=== PATIENT | female | born 1985 | race Caucasian/White ===

== ENCOUNTER 2017-06-16 10:08 | Emergency (ER) | payer OTHER ==
[~2017-06-16] VITALS: Ht 157.5 cm; Wt 59.9 kg
[~2017-06-16 10:08] MED LIST: BIRTH CONTROL PO; PERCOCET 5-3251 EACH PO; PERCOCET PO; ULTRAM 50MG TAB50 MG PO
[2017-06-16] MEDS ORDERED: NORCO 5-325 TA1 EACH PO (12:20)
== END 2017-06-16 12:21 | disposition home or self-care (01) ==
LOC: ER 10:08
DX: S80.211A Abrasion, right knee, initial encounter (principal); M25.552 Pain in left hip; M54.2 Cervicalgia; M54.6 Pain in thoracic spine; Z88.5 Allergy status to narcotic agent; Z91.81 History of falling; W10.8XXA Fall (on) (from) other stairs and steps, initial encounter; Y93.89 Activity, other specified; Y92.89 Other specified places as the place of occurrence of the external cause; Y99.8 Other external cause status

== ENCOUNTER 2017-09-09 08:57 | Emergency (ER) | payer OTHER ==
[~2017-09-09] VITALS: Ht 157.5 cm; Wt 57.6 kg
[~2017-09-09 08:57] MED LIST changes: +NORCO 5-325 TA1 EACH PO
[2017-09-09] MEDS ORDERED: ZOLOFT25 MG PO (09:40)
[2017-09-09] MEDS ORDERED: LISINOPRIL5 MG PO (09:40)
[2017-09-09 10:06] LABS: ABSOLUTE NEUTROPHILS 3.3 thou/uL (1.4-8.2); BASOPHILS 1.1 % (0.0-2.0); EOSINOPHILS 0.7 % (0.0-3.0); HEMATOCRIT 44.2 % (37.0-47.0); HEMOGLOBIN 14.7 gm/dL (12.0-15.0); MCH 28.8 pg (26.0-34.0); MCHC 33.4 g/dL (28.0-37.0); MCV 86.3 fL (80.0-100.0); MONOCYTES 10.1 % (1.0-8.0); PLATELET COUNT 181 thou/uL (150-400); POLYS 51.1 % (36.0-66.0); RBC 5.12 mil/uL (4.20-5.00); RDW 12.5 % (10.5-14.5); WBC 6.5 thou/uL (4.0-11.0)
[2017-09-09 10:08] LABS: MANUAL DIFF NO
[2017-09-09 10:12] LABS: ANION GAP 11 mmol/L (7-16); BUN 17 mg/dL (7-18); CALCIUM 9.5 mg/dL (8.5-10.1); CHLORIDE 104 mmol/L (98-107); CO2 22 mmol/L (21-32); GLUCOSE 95 mg/dL (74-106); POTASSIUM 3.3 mmol/L (3.5-5.1); SODIUM 137 mmol/L (136-145)
[2017-09-09 10:21] LABS: TROPONIN-I < 0.04 ng/mL (<0.06)
== END 2017-09-09 11:34 | disposition home or self-care (01) ==
LOC: ER 08:57
PROVIDERS: Physician Assistant
DX: F41.9 Anxiety disorder, unspecified (principal); R20.2 Paresthesia of skin; I10 Essential (primary) hypertension; Z88.5 Allergy status to narcotic agent; Z87.891 Personal history of nicotine dependence

== ENCOUNTER 2021-07-18 08:58 | Inpatient (IN) | payer OTHER ==
[~2021-07-18] VITALS: Ht 157.5 cm; Wt 66.7 kg
[~2021-07-18 08:58] MED LIST changes: +HYDRALAZINE 2525 MG PO; +LISINOPRIL5 MG PO; +ZOLOFT25 MG PO
[2021-07-18 09:06] VITALS: BP 179/103
--- NOTE | 2021-07-18 09:16 | NUR ---
DR. ESCOBAR BEDSIDE FOR EXAM
[2021-07-18] MEDS ORDERED: SERTRALINE HCL100 MG PO (09:32)
[2021-07-18] MEDS ORDERED: COZAAR 25 MG TA25 M1 PO (09:32)
[2021-07-18] MEDS ORDERED: LISINOPRIL20 MG PO (09:32)
[2021-07-18 09:48] LABS: ABSOLUTE NEUTROPHILS 5.1 thou/uL (1.4-8.2); BASOPHILS 0.9 % (0.0-2.0); EOSINOPHILS 1.7 % (0.0-3.0); HEMATOCRIT 39.6 % (37.0-47.0); HEMOGLOBIN 13.1 gm/dL (12.0-15.0); LYMPHOCYTES 23.3 % (24.0-44.0); MCH 28.4 pg (26.0-34.0); MONOCYTES 8.7 % (1.0-8.0); PLATELET COUNT 219 thou/uL (150-400); POLYS 65.4 % (36.0-66.0); RBC 4.61 mil/uL (4.20-5.00); WBC 7.8 thou/uL (4.0-11.0)
[2021-07-18 09:59] LABS: CALCIUM 8.5 mg/dL (8.5-10.1); POTASSIUM 4.1 mmol/L (3.5-5.1)
--- NOTE | 2021-07-18 15:16 | NUR ---
ASSUMED CARE OF PT
[2021-07-18 16:47] LABS: CHOLESTEROL 137 mg/dL (<200); HDL CHOLESTEROL 64 mg/dL (>40); LDL CHOLESTEROL 60 mg/dL (<100); TC:HDL 2.1 Ratio (Not establshd); TRIGLYCERIDE 66 mg/dL (<150); VLDL 13 mg/dL (<40)
[2021-07-18 17:03] VITALS: BP 122/74
--- NOTE | 2021-07-18 19:29 | NUR ---
PT ADMIT TO CCU APPROX 1700 FROM ED. PT HAS NO C/O CP/ NAUSEA/VOMITING/SOB. PT UP AD SUSANA WITH NO DEFICITS. PT AFEBRILE, ADEQUATE UOP, NO BM. PLAN TO DO CARDIAC STRESS TEST IN AM. PT HAS BEEN THOUROUGHLY UPDATED AND EDUCATED ON PT CONDITION AND POC. PT OROGRESSING TOWARDS POC.
[2021-07-18 20:03] VITALS: BP 136/85
[2021-07-18 23:08] VITALS: BP 136/85
[2021-07-19] VITALS (8 sets, daily range): BP systolic 102–137; BP diastolic 65–82
--- NOTE | 2021-07-19 04:45 | NUR ---
UPON SHIFT ASSESSMENT, PT AOX4. PT DENIES PAIN AND SOB WHILE ON ROOM AIR. PT TOLERATING PO INTAKE OF FLUIDS AND HEART HEALTHY DIET WITHOUT ISSUE, NPO AT MIDNIGHT IN ANTICIPATION OF CARDIAC RELATED PROCEDURE. PT WITHOUT NAUSEA OR EMESIS. PT AMBULATING INDEPENDENTLY IN ROOM AND TO BATHROOM. SENSATION INTACT, CAPILLARY REFILL LESS THAN 3SEC, PERIPHERAL PULSES PALPABLE IN ALL EXTREMITIES. PT ENCOURAGED TO NOTIFY STAFF FOR ALL NEEDS, CALL LIGHT WITHIN REACH, BED LOCKED IN LOWEST POSITION, FREQUENT MONITORING WILL CONTINUE.
--- NOTE | 2021-07-19 09:19 | CATHLAB ---
[facility] [place] [address] INVASIVE PROCEDURE REPORT Name: PATITO KRAUSE Room #: 214-P ADM IN M.R.#: [id number] Admission: 07/18/21 Attend Phys: Jason Pierson MD Discharge: Date of : 83 Report #: [id number] THIS REPORT FOR: cc: Andres Gutiérrez K. Steven DO Lundgren, Craig H. MD [facility] ~ APPROVED REPORT Study performed: 07/19/2021 07:43:40 Patient Details Patient Status: In-Patient Room #: The patient is a 36 year-old female Event Personnel James Conde Mold Parter, Molly Cobos RT(R)() Monitor, Mia Singh RTR Deuce Nielsen Dexter RN training program manager Performed Art Access - R femoral artery* Left Heart Cath w/or w/o Coronaries 1576002 [facility] Renal Bilateral Peripheral Angiography 1270244 CVRENALBIL Hemostasis w/ Mynx [id number] Initial Mod Sed Same Phys/QHP Gr5y 334731 Procedure Narrative The patient was brought urgently to the Cardiac Catheterization Laboratory and was prepped and draped in a sterile manner. The Right Groin^ was infiltrated with 1% Lidocaine subcutaneous anesthesia. A 6FR MULTIPACK W/145 PIG #[id number] sheath was inserted into the RFA 6F^. Coronary angiography was performed using coronary diagnostic catheters. The right coronary system was accessed and visualized with a JR4 catheter. The left coronary system was accessed and visualized with a JL4 catheter. The left ventricle was accessed and visualized with a PIGTAIL catheter. The patient tolerated the procedure well and there were no complications associated with the procedure. Selective renal angiography performed with the Flor right 4 cm catheter. Intraoperative Conscious Sedation Fentanyl 100 mcg Versed 1 mg Fluoro Time: 3.16 minutes Dose: DAP 2358.10 cGycm2 Contrast Type and Amount: Omnipaque 100 ml [facility] [email or web address] [address] INVASIVE PROCEDURE REPORT Name: PATITO KRAUSE Room #: 214-P [facility] IN [facility]#: [id number] Admission: 07/18/21 Attend Phys: Jason Pierson MD Discharge: Date of : 83 Report #: [id number] Coronary Angiography The patient's coronary anatomy is co- dominant. Diagnostic Cath Left Main Normal left main LAD Normal left anterior descending Diagonal 1 Large, single anterior lateral branch, angiographically normal Circumflex Large codominant circumflex L PDA Normal posterior descending Right Coronary Normal right coronary R PDA Normal posterior descending RPLV Normal posterior lateral Left Ventriculography The left ventricle is normal in size with normal contractility. The left ventricular ejection fraction is estimated to be 60-65%. Left ventricular wall motion abnormalities are not present. There is no mitral insufficiency. Normal bilateral renal angiography done in evaluation of hypertensive urgency Hemodynamics The aortic pressure is 118/50 mmHg with a mean of 59 mmHg. The left ventricular pressure is 111/3 mmHg with a mean of mmHg. The left ventricular end diastolic pressure is 7 mmHg. Conclusion 1. Normal global and regional left ventricular systolic function. EF 65% 2. Normal left main 3. Normal coronary vasculature. Codominant circulation 4. Normal single bilateral renal arteries <ELECTRONICALLY SIGNED> By: James Conde MD, FACC 07/19/21918 8 8 James Conde MD, FACC /INF
--- NOTE | 2021-07-19 12:29 | EKG ---
[address] [place] [address] ELECTROCARDIOGRAM REPORT Name: PATITO KRAUSE Room #: 214-P [facility] IN M.R.#: [id number] Admission: 07/18/21 Attend Phys: Jason Pierson MD Discharge: Date of : 83 Report #: [id number] [facility] ED Test Date: 2021-07-18 Test Time: 09:02:32 Pat Name: PATITO KRAUSE Department: Room: 214 Gender: F School Speech Language Pathologist: : 1985 Requested By: Devin Marie Order Number: [id number] MD: James Conde Measurements Intervals [place] Rate: 70 P: 39 IN: 146 QRS: 45 QRSD: 71 T: 38 QT: 387 QTc: 418 Interpretive Statements Sinus rhythm Poor R wave progression Compared to ECG 09/09/2017 09:50:29 No significant changes Electronically Signed On 07-19-2021 12:29:30 CDT by James Conde [email or web address] <ELECTRONICALLY SIGNED> By: James Conde MD, [facility] 07/19/21 1229 1 1 James Conde MD, FACC /EPI
--- NOTE | 2021-07-19 12:35 | EKG ---
[address] [address] ELECTROCARDIOGRAM REPORT Name: PATITO KRAUSE Room #: 214-P [facility] IN M.R.#: [id number] Admission: 07/18/21 Attend Phys: Jason Pierson MD Discharge: Date of : 83 Report #: [id number] [facility] ED Test Date: 2021-07-18 Test Time: 12:45:44 Pat Name: PATITO KRAUSE Department: Room: 214 Gender: F Disbursement Clerk: KAREN : 1985 Requested By: Devin Marie Order Number: [id number] MD: James Conde Measurements Intervals [place] Rate: 61 P: 22 MT: 147 QRS: 24 QRSD: 75 T: -2 QT: 398 QTc: 401 Interpretive Statements Sinus rhythm No significant abnormality Compared to ECG 07/18/2021 09:02:32 No significant changes Electronically Signed On 07-19-2021 12:34:42 CDT by James Conde [email or web address] <ELECTRONICALLY SIGNED> By: James Conde MD, [facility] 07/19/21 1234 1245 1245 James Conde MD, FACC /EPI
--- NOTE | 2021-07-19 12:45 | 2DMMODE ---
[facility] [place] [address] 2 D/M-MODE ECHOCARDIOGRAM Name: PATITO KRAUSE Room #: 214-P ADM IN M.R.#: [id number] Admission: 07/18/21 Attend Phys: Jason Pierson MD Discharge: Date of : 83 Report #: [id number] THIS REPORT FOR: cc: Andres Gutiérrez K. Steven DO Lundgren, Craig H. MD [facility] ~ APPROVED REPORT Study performed: 07/19/2021 11:07:37 EXAM: Comprehensive 2D, Doppler, and color-flow Echocardiogram Patient Location: Bedside Room #: 214 Status: routine BSA: 1.67 HR: 80 bpm BP: 137/78 mmHg Rhythm: NSR Other Information Study Quality: Good Indications Elevated Troponin Chest Pain Hypertension/HDD 2D Dimensions RVDd: 25.23 mm IVSd: 7.84 (7-11mm) LVOT Diam: 17.69 (18-24mm) LVDd: 41.27 mm PWd: 7.74 (7-11mm) Ascending Ao: 27.38 (22-36mm) LVDs: 29.16 (25-40mm) Left Atrium: 25.10 (27-40mm) IVC: 11.00 mm Volumes Left Atrial Volume (Systole) Single Plane 4CH: 28.26 mL Single Plane 2CH: 22.07 mL LA ESV Index: 17.00 mL/m2 Aortic Valve AoV Peak Efren.: 1.35 m/s AO Peak Gr.: 7.30 mmHg LVOT Max P.34 mmHg [facility] [address] [place] [address] 2 D/M-MODE ECHOCARDIOGRAM Name: KRAUSE,PATITO M Room #: 214-P [facility]#: [id number] Admission: 07/18/21 Attend Phys: Jason Pierson MD Discharge: Date of : 83 Report #: [id number] LVOT Max V: 1.04 m/s JUSTUS Vmax: 1.89 cm2 Mitral Valve E/A Ratio: 1.1 MV Decel. Time: 261.34 ms MV E Max Efren.: 0.70 m/s MV A Efren.: 0.65 m/s MV PHT: 75.79 ms IVRT: 87.66 ms Pulmonary Valve PV Peak Efren.: 0.96 m/s PV Peak Gr.: 3.71 mmHg Pulmonary Vein P Vein S: 0.57 m/s P Vein A: 0.29 m/s P Vein D: 0.35 m/s P Vein A Dur.: 96.9 msec P Vein S/D Ratio: 1.63 Left Ventricle The left ventricle is normal size. There is normal LV segmental wall motion. There is normal left ventricular wall thickness. Left ventricular systolic function is normal. The left ventricular ejection fraction is within the normal range. LVEF is 55-60%. The left ventricular diastolic function is normal. Right Ventricle The right ventricle is normal size. The right ventricular systolic function is normal. Atria The left atrium size is normal. The right atrium size is normal. Aortic Valve The aortic valve is normal in structure. No aortic regurgitation is present. There is no aortic valvular stenosis. Mitral Valve The mitral valve is normal in structure. There is no mitral valve regurgitation noted. No evidence of mitral valve stenosis. Tricuspid Valve The tricuspid valve is normal in structure. There is no tricuspid valve regurgitation noted. [facility] [address] [place] [address] 2 D/M-MODE ECHOCARDIOGRAM Name: PATITO KRAUSE Room #: 214-P ADM IN .R.#: [id number] Admission: 07/18/21 Attend Phys: Jason Pierson MD Discharge: Date of : 83 Report #: [id number] Pulmonic Valve The pulmonary valve is normal in structure. There is no pulmonic valvular regurgitation. Great Vessels The aortic root is normal in size. IVC is normal in size and collapses >50% with inspiration. Pericardium There is no pericardial effusion. <Conclusion> Left ventricular systolic function is normal. There is normal LV segmental wall motion. LVEF is 55-60%. The left ventricular diastolic function is normal. The aortic valve is normal in structure. No aortic regurgitation or stenosis. The mitral valve is normal in structure. No mitral valve regurgitation Pulmonary artery pressure could not be reliably ascertained There is no pericardial effusion. <ELECTRONICALLY SIGNED> By: James Conde MD, [facility] 07/19/21 1245 1245 1245 James Conde MD, FACC /INF
[2021-07-19] MEDS ORDERED: OLMSRTN-AMLDPN1 EACH PO (16:04)
--- NOTE | 2021-07-20 03:40 | NUR ---
PATIENT RESTING IN BED AAOX4. PATIENT STATES THAT SHE IS SORE BUT NOT HAVING ANY PAIN AT THIS TIME. VITAL SIGNS ARE STABLE. DRESSING TO R GROIN CATH SITE IS CDI. NOTED SOME BRUISING BUT NO HEMATOMA FORMATION. PULSES PALPABLE AND STRONG BILATERALLY. COMPLIES WITH TREATMENT. AMBULATES WELL WITH NO ASSISTANVE NEEDED. RR REGULAR AND UNLABORED. NO S/S OF DISTRESS NOTED. WILL CONTINUE TO MONITOR.
[2021-07-20 04:00] VITALS: BP 98/68
[2021-07-20 04:11] LABS: ABSOLUTE NEUTROPHILS 3.6 thou/uL (1.4-8.2); BASOPHILS 0.4 % (0.0-2.0); EOSINOPHILS 1.5 % (0.0-3.0); HEMATOCRIT 41.7 % (37.0-47.0); HEMOGLOBIN 14.1 gm/dL (12.0-15.0); LYMPHOCYTES 37.6 % (24.0-44.0); MCHC 33.9 g/dL (28.0-37.0); MCV 85.7 fL (80.0-100.0); MONOCYTES 11.5 % (1.0-8.0); PLATELET COUNT 241 thou/uL (150-400); RBC 4.86 mil/uL (4.20-5.00); RDW 13.4 % (10.5-14.5); WBC 7.4 thou/uL (4.0-11.0)
[2021-07-20 04:47] LABS: CALCIUM 8.8 mg/dL (8.5-10.1); CREATININE 1.2 mg/dL (0.6-1.0); MAGNESIUM 2.1 mg/dL (1.8-2.4); POTASSIUM 3.4 mmol/L (3.5-5.1)
[2021-07-20 06:33] VITALS: BP 106/61
[2021-07-20 07:50] VITALS: BP 112/70
[2021-07-20] MEDS ORDERED: DULCOLAX STOOL100 M1 PO (10:53)
[2021-07-20 11:19] VITALS: BP 112/70
--- NOTE | 2021-07-20 16:33 | NUR ---
PATIENT DISCHARGED TO HOME. EDUCATION AND DISCHARGE INSTUCTION PROVIDED. TRANSPORTED HOME BY A FRIEND.
== END 2021-07-20 11:46 | disposition home or self-care (01) | DRG 281 ==
LOC: ER 08:58 → EROBS 17:11 → 2N 17:11
PROVIDERS: Nurse Practitioner; Student in an Organized Health Care Education/Training Program; ADMIT Hospitalist; ATTEND Hospitalist
PROC: 4A023N7 Measurement of Cardiac Sampling and Pressure, Left Heart, Percutaneous Approach (ICD-10-PCS; principal; 2021-07-19)
PROC: B2111ZZ Fluoroscopy of Multiple Coronary Arteries using Low Osmolar Contrast (ICD-10-PCS; principal; 2021-07-19)
PROC: B4181ZZ Fluoroscopy of Bilateral Renal Arteries using Low Osmolar Contrast (ICD-10-PCS; principal; 2021-07-19)
PROC: B2151ZZ Fluoroscopy of Left Heart using Low Osmolar Contrast (ICD-10-PCS; principal; 2021-07-19)
DX: I21.4 Non-ST elevation (NSTEMI) myocardial infarction (principal); I16.1 Hypertensive emergency; F41.9 Anxiety disorder, unspecified; F32.9 Major depressive disorder, single episode, unspecified; I10 Essential (primary) hypertension; Z20.822 Contact with and (suspected) exposure to COVID-19; Z90.49 Acquired absence of other specified parts of digestive tract; Z88.6 Allergy status to analgesic agent; Z85.41 Personal history of malignant neoplasm of cervix uteri; Z82.49 Family history of ischemic heart disease and other diseases of the circulatory system; Z79.899 Other long term (current) drug therapy
CPT/HCPCS: 10081

== ENCOUNTER → 2021-07-23 | Outpatient (CLI) | payer OTHER ==
[~2021-07-23] MED LIST changes: +COZAAR 25 MG TA25 M1 PO; +DULCOLAX STOOL100 M1 PO; +LISINOPRIL20 MG PO; +OLMSRTN-AMLDPN1 EACH PO; +SERTRALINE HCL100 MG PO
== END ==
LOC: SJCVCIMAG 10:45
PROVIDERS: ATTEND Internal Medicine
DX: M79.89 Other specified soft tissue disorders (principal); M79.604 Pain in right leg